=== PATIENT | male | born 1960 | race Caucasian/White ===

== ENCOUNTER 2020-05-10 07:42 | Outpatient (CLI) | payer OTHER, SELFPAY ==
--- NOTE | 2020-05-14 11:37 | WPDPFTINT ---
PFT Interpretation PFT Interpretation: This PFT met all criteria for ATS standards and reproducibility FEV/FVC pre bronchodilator 70% of predicted FEV1 71% or 2.47 liters FVC 66% or 3.28 liters TLC 65% or 4.67 liters RV 40% RV/TLC 21 % DLCO 59% when adjusted for alveolar volume but not adjusted for hemoglobin Flow volume loops showed some expiratory coving Impression: Combined obstructive and restrictive ventilatory defect. The restriction is likely due to obesity Clinical correlation is advised.
--- NOTE | 2020-05-14 11:41 | WPDSIXMINUTE ---
Six Minute Walk Six Minute Walk: The patients O2 sats started at 97% and dropped as low as 91% Total walk distance 500 ft Patient stopped test at 4 minutes due to knee pain and dyspnea conclusion: This patient does not qualify for home oxygen therapy
== END 2020-05-10 07:43 | disposition home or self-care (01) ==
PROVIDERS: PCP Physician Assistant; Visit Provider Internal Medicine Critical Care Medicine
DX: R06.02 Shortness of breath (principal); R94.2 Abnormal results of pulmonary function studies
CPT/HCPCS: 94060; 94618; 94726; 94729

== ENCOUNTER 2020-07-01 12:34 | Outpatient (CLI) | payer OTHER, SELFPAY ==
--- NOTE | ~2020-07-01 | XR_ITS ---
EXAMINATION: XR chest 2V 07/01/2020 12:52 INDICATION: Chest pain PROCEDURE: PA and lateral views of the chest COMPARISON: 03/09/2015 FINDINGS: The lungs are clear. The cardiomediastinal silhouette is within normal limits. There are no pleural effusions. There is no pneumothorax suspected. Elevated right diaphragm. IMPRESSION: 1: NO ACUTE CARDIOPULMONARY DISEASE. Reviewed, dictated and finalized at location A. ODICALS LIBRARY ASSISTANT
--- NOTE | ~2020-07-01 | NM_ITS ---
EXAMINATION: NM pulmonary perfusion DATE: 07/01/2020 13:25 INDICATION: Dyspnea. TECHNIQUE: 5.31 mCi Tc-99m MAA was administered intravenously for perfusion images. Scintigraphic im ages of the chest were obtained. COMPARISON: Chest 2 views 07/01/2020, chest CT 04/27/07 FINDINGS: Perfusion images show no defects. ] IMPRESSION: 1. Pulmonary embolism absent (normal). Reviewed, dictated and finalized at location A. CTOR OF IT OPERATIONS
== END 2020-07-01 12:35 | disposition home or self-care (01) ==
PROVIDERS: PCP Physician Assistant; Visit Provider Internal Medicine Critical Care Medicine
DX: R06.09 Other forms of dyspnea (principal); R06.02 Shortness of breath
CPT/HCPCS: 71046; 78580; A9540

== ENCOUNTER 2022-03-05 07:00 | Outpatient (CLI) | payer OTHER, SELFPAY ==
--- NOTE | ~2022-03-05 | NM_ITS ---
EXAMINATION: NM pamela stress w perfusion DATE: 03/05/2022 11:07 INDICATION: Dyspnea TECHNIQUE: Rest images were obtained following intravenous administration of 10.5 mCi Tc99m tetrofosm in (Myoview). The patient was infused intravenously with Lexiscan (Regadenoson). Then, 34.0 mCi Tc99m tetrofosmin (Myoview) was administered intravenously, and stress images were obtained. Data was jonna nstructed into short axis and horizontal and vertical long axis SPECT images. Gated SPECT images were also obtained. COMPARISON: 05/30/1990 FINDINGS: There is no definite reversible or fixed perfusion abnormality to suggest ischemia or infar ction. There is normal left ventricular chamber size, wall motion and ejection fraction. Left ventr icular ejection fraction measures 67%. IMPRESSION: 1. Normal myocardial perfusion at rest and during stress. 2. Left ventricular ejection fraction measuring 67%. Reviewed, dictated and finalized at location A.
--- NOTE | 2022-03-05 08:03 | ECHO_ITS ---
Patient Info Name: Candida Summers Age: 61 years : 1960 Gender: Male Ht: 72 in Wt: 330 lbs BSA: 2.83 m2 HR: 82 bpm BP: 133 / 78 mmHg Technical Quality: Fair Exam Date: 03/05/2022 8:33 AM Exam Location: [facility] Patient Status: Outpatient Admit Date: 03/05/2022 Staff Ordering Physician: Jey Gonzalez DO Direct Entry Midwife: Leatha Gay RDCS Attending Provider: Jey Gonzalez DO Referring Physician: Carlos NELSON; Exam Type: CA echo doppler color flow Study Info Indications R06.09 - Other forms of dyspnea Complete two-dimensional, color flow and Doppler transthoracic echocardiogram is performed. Summary 1. Complete two-dimensional, color flow and Doppler transthoracic echocardiogram is performed. 2. Left ventricular chamber dimension is normal. 3. Left ventricular systolic function is normal, estimated at 55-60%. 4. There is mildly increased left ventricular wall thickness. 5. The left ventricular diastolic function is abnormal. 6. E/e' 11 is mildly elevated. 7. Atrial fibrillation. 8. Left atrial chamber dimension is moderately enlarged. 9. There is mild aortic valve sclerosis. 10. The mitral valve has moderately calcified annulus. 11. There is mild mitral valve regurgitation. 12. There is mild tricuspid valve regurgitation. 13. Mild pulmonary hypertension, estimated pulmonary arterial systolic pressure is 41 mmHg. Left Ventricle E/e' 11 is mildly elevated. Atrial fibrillation. Left ventricular chamber dimension is normal. Left ventricular systolic function is normal, estimated at 55-60%. There is mildly increased left ventricular wall thickness. The left ventricular diastolic function is abnormal. Right Ventricle Right ventricular systolic function is normal and with normal TAPSE 2.0 cm. Right ventricular chamber dimension is normal. Left Atria Left atrial chamber dimension is moderately enlarged. Right Atria Right atrial chamber dimension is normal. Aortic Valve The aortic valve is trileaflet. There is mild aortic valve sclerosis. There is no aortic valve stenosis. There is no aortic valve regurgitation. Pulmonic Valve There is no pulmonic regurgitation. Mitral Valve The mitral valve has moderately calcified annulus. There is no mitral valve stenosis. There is mild mitral valve regurgitation. Tricuspid Valve There is mild tricuspid valve regurgitation. Mild pulmonary hypertension, estimated pulmonary arterial systolic pressure is 41 mmHg. Pericardium/Pleural There is no pericardial effusion. Inferior Vena Cava Normal inferior vena cava with >50% collapse upon inspiration consistent with normal right atrial pressure, 5 mmHg. Aorta The aortic root size at the sinus of Valsalva is normal. Left Ventricular Outflow Tract Name Value Normal LVOT 2D LVOT Diameter 2.4 cm LVOT Doppler LVOT Peak Gradient 3 mmHg LVOT Mean Gradient 2 mmHg LVOT VTI 21 cm LVOT VTI/AV VTI Ratio 1.1 LVOT Stroke Volume 94 ml
--- NOTE | 2022-03-05 08:04 | EST_ITS ---
Patient Info Name: Candida Summers Age: 61 years : 1960 Gender: Male Ht: 72 in Wt: 330 lbs BSA: 2.83 m2 HR: 74 bpm BP: 140 / 87 mmHg Heart Rhythm: Sinus Rhythm Exam Date: 03/05/2022 10:12 AM Exam Location: [facility] Stress Patient Status: Outpatient Admit Date: 03/05/2022 Staff Ordering Physician: Jey Gonzalez DO Attending Provider: Jey Gonzalez DO Exercise Technologist: Geri Loya CT Exercise Physician: Jey Gonzalez DO Exam Type: CA stress pamela w NM Study Info Indications R06.09 - Other forms of dyspnea A regadenoson stress test was performed. Summary 1. 1. Negative lexiscan stress test for ischemic ST changes by ECG criteria. 2. 2. Baseline hypertension. 3. 3. Nuclear scan to follow and will be reported separately. Please correlate with it. 4. 4. Patient informed of the above results. Protocol: Lexiscan Stress ECG Details Stage: REST Duration (min): 1 min : 25 sec HR (bpm): 68 SBP (mmHg): --- DBP (mmHg): --- Stage: REST Duration (min): 12 min : 21 sec HR (bpm): 74 SBP (mmHg): --- DBP (mmHg): --- Stage: STAGE 1 Duration (min): 1 min : 0 sec HR (bpm): 70 SBP (mmHg): --- DBP (mmHg): --- Stage: RECOVERY Duration (min): 1 min : 0 sec HR (bpm): 96 SBP (mmHg): --- DBP (mmHg): --- Stage: RECOVERY Duration (min): 2 min : 0 sec HR (bpm): 87 SBP (mmHg): 155 DBP (mmHg): 78 Stage: RECOVERY Duration (min): 3 min : 0 sec HR (bpm): 82 SBP (mmHg): 155 DBP (mmHg): 78 Stage: RECOVERY Duration (min): 3 min : 26 sec HR (bpm): 78 SBP (mmHg): 135 DBP (mmHg): 87 Rest HR: 74 bpm Peak HR: 100 bpm Rest Sys BP: 145 mmHg Peak Sys BP: 155 mmHg Max Pred HR: 160 bpm % Max Pred HR: 63 % Target HR: 136 bpm Max RPP: 15,500 bpm*mmHg Termination Reason: Completed protocol Cardiac Symptoms: Shortness of breath Total Time: 1 min : 0 sec Rest Puente BP: 80 mmHg Peak [place]ente BP: 78 mmHg Total Dose: 0.4 mg Resting ECG Atrial fibrillation, IRBBB. Stress ECG No ST changes. Arrhythmias None. Report Signatures
== END 2022-03-05 07:01 | disposition home or self-care (01) ==
LOC: ANHCARD 07:03
PROVIDERS: PCP Physician Assistant; Visit Provider Internal Medicine Cardiovascular Disease
DX: R06.09 Other forms of dyspnea (principal); I08.3 Combined rheumatic disorders of mitral, aortic and tricuspid valves
CPT/HCPCS: 78452; 93017; 93306; A9502; J2785

== ENCOUNTER 2022-06-05 01:01 | Day surgery (SDC) | payer OTHER, SELFPAY ==
--- NOTE | 2022-06-02 12:45 | PC.NURSE ---
This RN called & spoke with Dr Gonzalez. No eliquis or anna marie started. Ok with Dr Gonzalez & no labs needed.
[2022-06-04 14:57] VITALS: BMI 47.2
--- NOTE | 2022-06-05 | ECHO_ITS ---
Patient Info Name: Candida Summers Age: 61 years : 1960 Gender: Male Ht: 72 in Wt: 348 lbs BSA: 2.91 m2 HR: 87 bpm Exam Date: 06/05/2022 11:52 AM Exam Location: [facility] Pulmonary Patient Status: Outpatient Admit Date: 06/05/2022 Staff Ordering Physician: Jey Gonzalez DO Executive Chef Assistant: Magdy Haro RDCS, RT Attending Provider: Jey Gonzalez DO Referring Physician: Carlos NELSON; Exam Type: CA echo transesophageal Study Info Indications I48.1 - Persistent atrial fibrillation Complete two-dimensional, color flow and Doppler transesophageal study is performed. Procedure Details Risks/benefits/alternative to HAZEL discuss with patient and he is agreeable for procedure. Patient given cetacaine spray x 1 to posterior oropharynx. Patient monitored throughout the procedure electrocardiographically showing atrial fibrillation at 80 bpm, BP 120/70 mmHg, pulse ox >95%. Patient was given sedation as per anesthesiology. HAZEL probe advanced into esophagus without incident. Multiple images obtained at various levels of esophagus. Agitated saline injection x1. HAZEL probe withdrawn and no blood noted on HAZEL probe tip. Patient tolerated procedure well with no complications. Summary 1. Transesophageal echocardiogram. 2. Left ventricular chamber dimension is normal. 3. Left ventricular systolic function is normal with an ejection fraction of 60-65%. 4. There is mildly increased left ventricular wall thickness. 5. Left atrial chamber dimension is moderately enlarged. 6. Spontaneous echo contrast noted. 7. There is mobile echogenic rounded thrombus measuring 0.5 cm x 0.5 cm visualized in the left atrial appendage. 8. There is mild aortic valve sclerosis. 9. There is mild mitral valve regurgitation. 10. There is mild tricuspid valve regurgitation. Left Ventricle Left ventricular systolic function is normal with an ejection fraction of 60-65%. The left ventricular diastolic function is indeterminate as this was not assessed. Left ventricular chamber dimension is normal. There is mildly increased left ventricular wall thickness. Transesophageal echocardiogram. Right Ventricle Right ventricular chamber dimension is normal. Right ventricular systolic function is normal. Left Atria Spontaneous echo contrast noted. Left atrial chamber dimension is moderately enlarged. Right Atria Right atrial chamber dimension is normal. Atrial Septum Agitated saline injection opacified right side cardiac chambers without shunt to left side cardiac chambers. Intact interatrial septum visualized by 2D, color flow and agitated saline imaging. Atrial Appendage There is mobile echogenic rounded thrombus measuring 0.5 cm x 0.5 cm visualized in the left atrial appendage. Aortic Valve The aortic valve is trileaflet. There is mild aortic valve sclerosis. There is no aortic valve stenosis. There is no aortic valve regurgitation. Pulmonic Valve There is no pulmonic regurgitation. Mitral Valve There is no mitral valve stenosis. There is mild mitral valve regurgitation. Tricuspid Valve RVSP was not measured. There is mild tricuspid valve regurgitation. Pericardium/Pleural There is no pericardial effusion. Inferior Vena Cava Inferior vena cava is not well visualized. Aorta The aortic root size at the sinus of Valsalva is normal. Report Signatures
[2022-06-05 10:12] VITALS: BP 118/64; PULSE 84; RESP 26; TEMP 36; O2SAT 100; BMI 46.5
--- NOTE | 2022-06-05 10:45 | WPDANESEPPF ---
Anes - Initial Pre Proc Eval Procedure: Operation Date: 06/05/22 12:30 Proposed Procedures p Trans Esophageal Echo HAZEL - Jey Gonzalez DO s Electrical Cardioversion - Jey Gonzalez DO Date/Time: 06/05/22 10:45 Surgeon: Jey Gonzalez DO Pre Op Diagnosis: Afib Patient Data Age: 61 Gender: M Height: 1.83 m Weight: 155.7 kg Last Vital Signs Temp 96.8 F L 06/05/22 10:12 Pulse 84 06/05/22 10:12 Resp 26 H 06/05/22 10:12 BP 118/64 06/05/22 10:12 Pulse Ox 100 06/05/22 10:12 O2 Del Method Room Air 06/05/22 10:12 Allergies Allergy/AdvReac Type Severity Reaction Status Date / Time No Known Allergies Allergy Mild Verified 06/01/22 09:22 Home Medications Medication Instructions Recorded Confirmed Type multivitamin 1 tablet PO DAILY 10/10/19 06/04/22 History aspirin 325 mg tablet,delayed 325 mg PO DAILY 04/09/20 06/04/22 History release inhalational spacing device #1 ea 06/26/20 06/04/22 Rx (Aerochamber MV spacer) montelukast 10 mg tablet 10 mg PO QHS 1 month #30 tabs 03/13/21 06/04/22 Rx (Singulair) fluticasone propionate 110 See Rx Instructions .Route 04/18/21 06/04/22 Rx mcg/actuation HFA aerosol inhaler .COMPLEX #12 grams (Flovent HFA) flecainide 100 mg tablet 100 mg PO BID #180 tabs 03/06/22 06/04/22 Rx metoprolol succinate 50 mg See Rx Instructions .Route 04/01/22 06/04/22 Rx tablet,extended release 24 hr .COMPLEX #30 tabs losartan 50 mg tablet See Rx Instructions .Route 04/08/22 06/04/22 Rx .COMPLEX #90 tabs albuterol sulfate 90 mcg/actuation 1 - 2 inh inhalation Q4-6H PRN 04/22/22 06/04/22 Rx aerosol inhaler shortness of breath or wheezing #8.5 grams Patient hx anesthesia problems: none Family hx anesthesia problems: none Results Review: All pre-operative results and documents have been reviewed as part of the pre-operative evaluation. [facility] Past Medical History Medical History Asthma Atrial fibrillation with normal ventricular rate Bilateral chronic knee pain ENGEL (dyspnea on exertion) Essential hypertension Insomnia, unspecified Obesity SOB (shortness of breath) on exertion Surgical History Surgical History History of knee surgery History of nasal surgery Family History Family History Other Diabetes mellitus Social History Social History Smoking status: Never smoker Second hand tobacco smoke exposure: No Alcohol intake: current Alcohol use details: occasional Substance use: never Spiritual care concerns: No Anes - Eval Final PreProcedure Day of Procedure 06/05/22 10:45 Patient weight: morbidly obese Heart: irregular rhythm Lungs: clear to auscultation Airway: Mallampati scale class III Neurological: alert and oriented ASA classification: IV Emergent: no Anesthetic plan: proceed Anesthesia type and monitoring: general GIVS and standard monitoring Results Review: All pre-operative results and documents have been reviewed as part of the pre-operative evaluation. Informed Consent: The patient's anesthetic plan and its attendant risks and benefits were discussed with the patient/family/POA. Questions were solicited and answers provided to the satisfaction of the patient/family/POA.
--- NOTE | 2022-06-05 11:45 | ECG_ITS ---
Measurements Intervals [place] Rate: 76 P: [place]: 0 QRS: 73 QRSD: 98 T: 13 QT: 372 QTc: 420 Interpretive Statements ATRIAL FIBRILLATION BORDERLINE LEFTWARD AXIS ABNORMAL RHYTHM ECG NO PREVIOUS ECG AVAILABLE FOR COMPARISON Electronically Signed On 06-05-2022 13:46:42 CDT by Jignesh Aragon M.D.
[2022-06-05 12:05] VITALS: BP 104/70; PULSE 87; RESP 35; O2SAT 98
[2022-06-05 12:15] VITALS: BP 128/107; PULSE 85; RESP 32; O2SAT 98
[2022-06-05 12:30] VITALS: BP 110/71; PULSE 81; RESP 24; O2SAT 98
[2022-06-05 12:45] VITALS: BP 115/71; PULSE 74; RESP 27; O2SAT 99
[2022-06-05 13:00] VITALS: BP 121/77; PULSE 77; RESP 25; O2SAT 98
== END 2022-06-05 13:10 | disposition home or self-care (01) ==
PROVIDERS: PCP Physician Assistant; Visit Provider Internal Medicine Cardiovascular Disease
PROC: (CPT 93312; principal; 2022-06-05 12:30)
PROC: 5A2204Z Restoration of Cardiac Rhythm, Single (ICD-10-PCS; 2022-06-05 12:30)
DX: I48.19 Other persistent atrial fibrillation (principal); I34.0 Nonrheumatic mitral (valve) insufficiency; I36.1 Nonrheumatic tricuspid (valve) insufficiency; I10 Essential (primary) hypertension; G47.33 Obstructive sleep apnea (adult) (pediatric); R60.0 Localized edema; J45.909 Unspecified asthma, uncomplicated; R06.09 Other forms of dyspnea; Z79.82 Long term (current) use of aspirin; Z79.51 Long term (current) use of inhaled steroids
CPT/HCPCS: 92960; 93312; 93320; 93325; A9270; J2704

== ENCOUNTER 2022-08-17 02:05 | Day surgery (SDC) | payer OTHER, SELFPAY ==
[2022-08-14 09:08] VITALS: BMI 46.2
--- NOTE | 2022-08-16 09:35 | WPDANESEPPF ---
Anes - Initial Pre Proc Eval Procedure: Operation Date: 08/17/22 09:30 Proposed Procedures p Trans Esophageal Echo - Jey Gonzalez DO s Electrical Cardioversion - Jey Gonzalez DO Date/Time: 08/16/22 09:35 Surgeon: Jey Gonzalez DO Pre Op Diagnosis: Afib I48.91 Patient Data Age: 61 Gender: M Height: 1.83 m Weight: 154.5 kg Allergies Allergy/AdvReac Type Severity Reaction Status Date / Time No Known Allergies Allergy Mild Verified 08/17/22 08:39 Home Medications Medication Instructions Recorded Confirmed Type multivitamin 1 tablet PO DAILY 10/10/19 08/17/22 History inhalational spacing device #1 ea 06/26/20 08/03/22 Rx (Aerochamber MV spacer) flecainide 100 mg tablet 100 mg PO BID #180 tabs 03/06/22 08/17/22 Rx albuterol sulfate 90 mcg/actuation 1 - 2 inh inhalation Q4-6H PRN 04/22/22 08/17/22 Rx aerosol inhaler shortness of breath or wheezing #8.5 grams apixaban 5 mg tablet (Eliquis) 5 mg PO BID #60 tabs 06/05/22 08/17/22 Rx montelukast 10 mg tablet 10 mg PO QHS 1 month #30 tabs 06/15/22 08/17/22 Rx (Singulair) losartan 50 mg tablet 50 mg PO DAILY 08/17/22 08/17/22 History meloxicam 15 mg tablet 15 mg PO HS 08/17/22 08/17/22 History metoprolol succinate 50 mg 50 mg PO DAILY 08/17/22 08/17/22 History tablet,extended release 24 hr Other studies: Admit Date: ? ? 03/05/2022 Staff Ordering Physician: ? ? Jey Gonzalez DO External Relations Director: ? ? Leatha Gay RDCS Attending Provider: ? ? Jey Gonzalez DO Referring Physician: ? ? Carlos NELSON; Exam Type: ? ? CA echo doppler color flow Study Info Indications ? ? R06.09 - Other forms of dyspnea Complete two-dimensional, color flow and Doppler transthoracic echocardiogram is performed. Account #: ? ? [id number] Summary ? 1. Complete two-dimensional, color flow and Doppler transthoracic echocardiogram is performed. ? 2. Left ventricular chamber dimension is normal. ? 3. Left ventricular systolic function is normal, estimated at 55-60%. ? 4. There is mildly increased left ventricular wall thickness. ? 5. The left ventricular diastolic function is abnormal. ? 6. E/e' 11 is mildly elevated. ? 7. Atrial fibrillation. ? 8. Left atrial chamber dimension is moderately enlarged. ? 9. There is mild aortic valve sclerosis. ? 10. The mitral valve has moderately calcified annulus. ? 11. There is mild mitral valve regurgitation. ? 12. There is mild tricuspid valve regurgitation. ? 13. Mild pulmonary hypertension, estimated pulmonary arterial systolic pressure is 41 mmHg. Patient hx anesthesia problems: none Family hx anesthesia problems: none Results Review: All pre-operative results and documents have been reviewed as part of the pre-operative evaluation. [facility] Past Medical History Medical History (Updated 08/16/22 @ 09:38 by Dom Trinh MD) Asthma Atrial fibrillation with normal ventricular rate Bilateral chronic knee pain ENGEL (dyspnea on exertion) Essential hypertension Insomnia, unspecified Morbid obesity with BMI of 45.0-49.9, adult Obesity Obstructive sleep apnea syndrome Pulmonary HTN SOB (shortness of breath) on exertion Surgical History Surgical History History of knee surgery History of nasal surgery Family History Family History Other Diabetes mellitus Social History Social History Smoking status: Never smoker Second hand tobacco smoke exposure: No Alcohol intake: current Alcohol use details: occasional Substance use: never Substance use type: does not use Living arrangements: with family Spiritual care concerns: No Anes - Eval Final PreProcedure Day of Procedure 08/16/22 09:35 Patient weight: morbidly obese Heart: irregular rhythm Lungs: clear to auscultation Airway: Mallampati scale class III Neurological: a
[2022-08-17] VITALS (11 sets, daily range): BP systolic 103–131; BP diastolic 63–93; PULSE 69–87; RESP 18–29; TEMP 36.6; O2SAT 95–98; BMI 48.6
--- NOTE | 2022-08-17 | ECHO_ITS ---
Patient Info Name: Candida Summers Age: 61 years : 1960 Gender: Male Ht: 72 in Wt: 340 lbs BSA: 2.87 m2 HR: 88 bpm Technical Quality: Good Exam Date: 08/17/2022 9:43 AM Exam Location: [facility] Pulmonary Patient Status: Outpatient Admit Date: 08/17/2022 Staff Ordering Physician: Jey Gonzalez DO Net Programmer Analyst: Magdy Haro RDCS, RT Attending Provider: Jey Gonzalez DO Referring Physician: Carlos NELSON; Exam Type: CA echo transesophageal Study Info Indications I48.1 - Persistent atrial fibrillation Complete two-dimensional, color flow and Doppler transesophageal study is performed. Procedure Details Risks/benefits/alternative treatment to HAZEL/cardioversion discuss with patient and he is agreeable for it. He was monitored electrocardiographically, pulse ox and vitals. HR was at 85 bpm, BP 130/80 mmHg, pulse ox >90%. Given cetacaine spray x 1 to posterior oropharynx. HAZEL probe advanced without incident into esophagus. Multiple images obtained at various levels in esophagus. HAZEL probe withdrawn and no blood noted on HAZEL probe tip. He tolerated procedure well with no complications. Summary 1. Transesophageal echocardiogram. 2. Left ventricular chamber dimension is normal. 3. There is mildly increased left ventricular wall thickness. 4. The left ventricular diastolic function is indeterminate. 5. Left ventricular systolic function is normal with an ejection fraction of 60-65%. 6. Left atrial chamber dimension is moderately enlarged. 7. Spontaneous echo contrast noted in left atrium. 8. Reverberation artifact noted from coumadin ridge to opening of left atrial appendage. 9. There is mild mitral valve regurgitation. 10. There is mild tricuspid valve regurgitation. Left Ventricle Left ventricular systolic function is normal with an ejection fraction of 60-65%. Transesophageal echocardiogram. Left ventricular chamber dimension is normal. There is mildly increased left ventricular wall thickness. The left ventricular diastolic function is indeterminate. Right Ventricle Right ventricular chamber dimension is normal. Right ventricular systolic function is normal. Left Atria Spontaneous echo contrast noted in left atrium. Left atrial chamber dimension is moderately enlarged. Right Atria Right atrial chamber dimension is normal. Atrial Septum Reverberation artifact noted from coumadin ridge to opening of left atrial appendage. Atrial Appendage There is no thrombus visualized in the left atrial appendage. Aortic Valve The aortic valve is trileaflet. There is no aortic valve stenosis. There is no aortic valve regurgitation. Pulmonic Valve There is no pulmonic regurgitation. Mitral Valve There is no mitral valve stenosis. There is mild mitral valve regurgitation. Tricuspid Valve There is mild tricuspid valve regurgitation. RVSP is not measured. Pericardium/Pleural There is no pericardial effusion. Inferior Vena Cava Inferior vena cava is not well visualized. Aorta The aortic root size at the sinus of Valsalva is normal. Report Signatures
--- NOTE | 2022-08-17 08:00 | ECG_ITS ---
Measurements Intervals [place] Rate: 81 P: [place]: 0 QRS: 80 QRSD: 102 T: 13 QT: 394 QTc: 460 Interpretive Statements ATRIAL FIBRILLATION ABNORMAL RHYTHM ECG COMPARED TO ECG 08/17/2022 08:31:14 NO SIGNIFICANT CHANGES Electronically Signed On 08-17-2022 10:31:38 SHOE WORKER by Thomas Jones M.D.
[2022-08-17 09:22] LABS: Anion Gap 5 mmol/L (8-16); Blood Urea Nitrogen 27 mg/dL (9-20); Carbon Dioxide 28 mmol/L (22-30); Chloride 103 mmol/L (98-107); Estimated CRCL calculation 121 ml/min; Estimated Glomerular Filt Rate > 60; Glucose 98 mg/dL (65-110); Magnesium 2.1 mg/dL (1.6-2.3); Potassium 4.1 mmol/L (3.4-5.0); Sodium 136 mmol/L (137-145)
--- NOTE | 2022-08-17 09:30 | ECG_ITS ---
Measurements Intervals [place] Rate: 80 P: [place]: 0 QRS: 82 QRSD: 95 T: 32 QT: 394 QTc: 455 Interpretive Statements ATRIAL FIBRILLATION ABNORMAL ECG Electronically Signed On 08-17-2022 10:30:17 FURNITURE ASSEMBLY SUPERVISOR by Thomas Jones M.D.
--- NOTE | 2022-08-17 10:47 | WPDCARDVER ---
Cardioversion Cardioversion Date of procedure: 08/17/22 Procedure: Direct current Cardioversion Pre-op diagnosis: Atrial fibrillation Indications: Symptomatic atrial fibrillation Description of procedure: DC cardioversion Sedation: As per anesthesiology service Findings: DC defibrillation pads placed in anterior and posterior chest wall. 200 J biphasic synchronized energy x3 but remained in atrial fib/flutter. No complications. Conclusion: 1. Unsuccessful DC cardioversion with 3 direct current attempts remaining in atrial fib/flutter. [facility] Billing for Cardioversion: Cardioversion
== END 2022-08-17 12:00 | disposition home or self-care (01) ==
PROVIDERS: PCP Physician Assistant; Visit Provider Internal Medicine Cardiovascular Disease
PROC: (CPT 93312; principal; 2022-08-17 09:30)
PROC: 5A2204Z Restoration of Cardiac Rhythm, Single (ICD-10-PCS; 2022-08-17 09:30)
DX: I48.19 Other persistent atrial fibrillation (principal); I34.0 Nonrheumatic mitral (valve) insufficiency; I36.1 Nonrheumatic tricuspid (valve) insufficiency; I27.20 Pulmonary hypertension, unspecified; R06.09 Other forms of dyspnea; I10 Essential (primary) hypertension; G47.33 Obstructive sleep apnea (adult) (pediatric); Z79.51 Long term (current) use of inhaled steroids; Z79.01 Long term (current) use of anticoagulants; E66.01 Morbid (severe) obesity due to excess calories; Z68.42 Body mass index [BMI] 45.0-49.9, adult
CPT/HCPCS: 36415; 80048; 83735; 92960; 93312; 93320; 93325; J2704

== ENCOUNTER 2023-10-17 10:01 | Emergency (ER) | payer BC, MEDICAID, SELFPAY ==
[2023-10-17] VITALS (11 sets, daily range): BP systolic 97–130; BP diastolic 40–84; PULSE 78–90; RESP 14–22; TEMP 36.4–36.7; O2SAT 92–100
--- NOTE | ~2023-10-17 | CT_ITS ---
EXAMINATION: CT abdomen pelvis w con DATE: 10/17/2023 12:57 INDICATION: Right upper quadrant and epigastric pain. Nausea, vomiting and diarrhea. TECHNIQUE: Computed tomography (CT) of the abdomen and pelvis was performed with 100 mL Omnipaque-350 intravenous contrast. Automated exposure control and iterative reconstruction technique were employe d. The dose-length product was 1756.92 mGy-cm. COMPARISON: 04/16/2012 FINDINGS: Elevation the right hemidiaphragm with partial collapse of the adjacent inferior right middle lobe. U nchanged minimal lingular atelectasis/scarring. Heart size is normal. Atherosclerotic coronary artery calcific location. Aortic valve calcific lesion. No pericardial or pleural effusion. Liver, gallblad roxana, spleen, pancreas, bilateral adrenal glands and right kidney are normal. 3.9 cm left renal cyst. Bladder is normal. There is mild colonic diverticulosis with a sigmoid predominance. There is no adj acent inflammatory change to suggest diverticulitis. Thin curvilinear soft tissue density rim surroun ding a small heterotopic fat attenuation epiploic appendage along the distal descending colon without significant inflammatory stranding consistent with epiploic appendicitis more likely chronic than ac [place] but new since the prior study. Fluid in the proximal colon consistent with nonspecific diarrhea. No bowel obstruction. No obstruction. Normal appendix. Bladder is normal. No free intraperitoneal gas or fluid. Fat-containing left inguinal hernia. IMPRESSION: 1. Colonic fluid consistent with nonspecific diarrhea. Correlate clinically for gastroenteritis. 2. Age-indeterminate but more likely chronic epiploic appendage ice at the distal descending colon. Reviewed, dictated and finalized at location A. ARCHITECT IMPRESSION: 1. Colonic fluid consistent with nonspecific diarrhea. Correlate clinically for gastroenteritis. 2. Age-indeterminate but more likely chronic epiploic appendage ice at the dist al descending colon.
--- NOTE | 2023-10-17 10:24 | ECG_ITS ---
Measurements Intervals [place] Rate: 83 P: [place]: 0 QRS: 83 QRSD: 89 T: 7 QT: 380 QTc: 449 Interpretive Statements ATRIAL FIBRILLATION RIGHTWARD AXIS ABNORMAL RHYTHM ECG COMPARED TO ECG 08/17/2022 10:24:06 NO SIGNIFICANT CHANGES Electronically Signed On 10-17-2023 14:13:00 ARMHOLE PRESSER by Jignesh Aragon M.D.
[2023-10-17 11:24] LABS: Basophils Percent Auto 0.4 % (0.2-1.2); Eosinophils Absolute Auto 0.1 K/mm3 (0-0.3); Eosinophils Percent Auto 0.8 % (0-4.4); Hematocrit 47.4 % (42.0-52.0); Hemoglobin 16.2 g/dL (14.0-18.0); Immature Granulocyte Absolute 0.03 K/mm3 (0.00-0.031); Immature Granulocyte Percent A 0.3 % (0-0.5); Lymphocytes Absolute Auto 1.49 K/mm3 (0.9-3.2); Lymphocytes Percent Auto 15.3 % (18.3-44.2); Mean Corpuscular HGB Conc 34.2 g/dl (32-36); Mean Corpuscular Hemoglobin 31.2 pg (26-34); Mean Corpuscular Volume 91.3 fl (80-100); Mean Platelet Volume 10.8 fl (7.4-10.4); Monocytes Absolute Auto 0.4 K/mm3 (0.1-0.6); Neutrophils Absolute Auto 7.7 K/mm3 (1.3-6.7); Neutrophils Percent Auto 79.2 % (45.5-73.1); Platelet Count Result 212 k/mm3 (150-375); Red Blood Count 5.19 M/mm3 (4.6-6.20); Red Cell Distribution Width 12.2 % (11.5-14.5); White Blood Count 9.7 K/mm3 (4.5-10.0)
[2023-10-17 11:33] LABS: Alanine Aminotransferase 146 U/L (6-50); Albumin Level 4.7 g/dL (3.5-5.1); Alkaline Phosphatase 134 U/L (38-126); Anion Gap 14 mmol/L (8-16); Aspartate Amino Transferase 57 U/L (17-59); Bilirubin,Total 1.4 mg/dL (0.2-1.3); Blood Urea Nitrogen 25 mg/dL (9-20); Carbon Dioxide 17 mmol/L (22-30); Chloride 106 mmol/L (98-107); Estimated CRCL calculation 89 ml/min; Estimated Glomerular Filt Rate > 60; Glucose 134 mg/dL (65-110); Lipase 169 U/L (23-300); Potassium 3.6 mmol/L (3.4-5.0); Sodium 137 mmol/L (137-145)
--- NOTE | 2023-10-17 11:52 | ED.ABDPAIN ---
HPI - Abdominal Pain General Chief Complaint: Abdominal Pain Stated Complaint: vomiting Time Seen by Provider: 10/17/23 10:51 Source: patient Mode of arrival: ambulatory Limitations: no limitations History of Present Illness HPI narrative: Patient is a 62-year-old male who presents ED with report of upper abdominal pain. Patient reports the pain has been ongoing for the last 1 week, but became worse today. He has not taken anything for the pain. Pain present throughout his upper abdomen. He notes he is currently on semaglutide for weight loss and had his dose increased last week. He complains of nausea, vomiting, diarrhea. Reporting several episodes of each. Denies rectal bleeding, melena, fevers. Has never had pain like this before. No previous history of pancreatitis. No alcohol use. Patient has hx of afib, on eliquis. Related Data Home Medications Medication Instructions Recorded Confirmed multivitamin 1 tablet PO DAILY 10/10/19 08/25/23 amiodarone 200 mg tablet 200 mg PO DAILY 04/21/23 08/25/23 diclofenac sodium 75 mg 75 mg PO BID 04/21/23 08/25/23 tablet,delayed release nortriptyline 25 mg capsule 25 mg PO QHS 04/21/23 08/25/23 Allergies Allergy/AdvReac Type Severity Reaction Status Date / Time No Known Allergies Allergy Mild Verified 08/25/23 09:05 Review of Systems Review of Systems: CONSTITUTIONAL: Denies fever, chills, or sweats. CARDIOVASCULAR: Denies chest pain. RESPIRATORY: Denies dyspnea. GASTROINTESTINAL: See HPI GENITOURINARY: Denies dysuria or hematuria. All systems reviewed & are unremarkable except as noted in HPI and below [facility] Past Medical History Medical History Asthma Atrial fibrillation with normal ventricular rate Bilateral chronic knee pain ENGEL (dyspnea on exertion) Essential hypertension Insomnia, unspecified Morbid obesity with BMI of 45.0-49.9, adult Obesity Obstructive sleep apnea syndrome Pulmonary HTN SOB (shortness of breath) on exertion Surgical History Surgical History History of knee surgery History of nasal surgery Family History Family History Other Diabetes mellitus Social History Social History Smoking status: Never smoker Second hand tobacco smoke exposure: No Alcohol intake: current Alcohol use details: occasional Substance use: never Substance use type: does not use Lack of Transportation: No Lack of Food: Never True Current Housing: I Have Housing Concerned About Future Housing: No Difficulty Paying Gas/Electric Bills: No Difficulty Paying for Meds: No Currently Unemployed: No Education: High School Diploma/GED Difficulty w/ Childcare or Family Care: No Living arrangements: with family Gender identity (if verbalized by the patient): Male Sexual Orientation (if Verbalized by the Patient): Straight or Heterosexual Spiritual care concerns: No Exam Narrative: GENERAL: Uncomfortable appearing, moaning out in pain, difficulty sitting still on ED stretcher. Patient morbidly obese with BMI of 39.9. HEAD: Normocephalic, atraumatic. RESPIRATORY: Airway patent, respirations nonlabored. Clear to auscultation bilaterally, no rales, rhonchi, wheezing. CARDIOVASCULAR: Regular rate and rhythm without murmurs, rubs, or gallops. ABDOMINAL: Soft, diffuse upper abdominal tenderness, difficult to examine - patient somewhat uncooperative, nondistended. Normoactive BS. MUSCULOSKELETAL: Moves all extremities. No gross deformities. SKIN: Warm, dry, normal color. NEURO: A&O X3. Speech clear. Cranial nerves II-XII grossly intact. No ataxic movements. PSYCHIATRIC: Anxious, tearful. Normal interaction. Course Vital Signs Vital signs: Vital Signs Temperature 97.7 F 0
[2023-10-17] MEDS: SODIUM CHLORIDE 0.9% IV 1,000 ML 999 ML IV CONT ×2 (12:02→13:24)
[2023-10-17] MEDS: ONDANSETRON INJ 4 MG/2 ML VIAL IV PUSH (12:03)
[2023-10-17] MEDS: HYDROmorphone HCL INJ (*CRX) 1 MG/ML SYR IV PUSH (12:03)
[2023-10-17 14:24] LABS: Influenza A QL RT-PCR Negative (Negative); Influenza B QL RT-PCR Negative (Negative); RSV RNA, RT-PCR Negative (Negative); SARS-CoV-2 RNA PCR Negative (Negative)
[2023-10-17] MEDS: DICYCLOMINE HCL 10 MG CAPSULE 20 MG PO (14:48)
[2023-10-17] MEDS: ACETAMINOPHEN 500 MG TABLET 1000 MG PO (14:48)
[2023-10-17 15:20] LABS: Appearance Urine Cloudy (Clear); Bacteria Urine None Seen /hpf; Bilirubin Urine Negative (Negative); Blood Urine Negative (Negative); Color Urine Dark Yellow (Yellow); Glucose Urine UA Negative (Negative); Ketones Urine 2+ mg/dL (Negative); Leukocyte Esterase Ur Negative LEU/UL (Negative); Need Manual Microscopic Reviewed; Nitrate Urine Negative (Negative); Protein Urine 1+ mg/dL (Negative); RBC Urine 0-2 /hpf (0-2); Squamous Epithelial Cell Urine None seen /hpf (Few); Urobilinogen Urine 0.2 mg/dL (<2.0); WBC Urine 0-5 /hpf; pH Urine 5.5 (5.0-9.0)
[2023-10-17] MEDS: BELLADONNA ALK/PHENOB ELIX 10 ML, MAG HYDROX/ALUMINUM HYD/SIMETH 30 ML, LIDOCAINE HCL 2... PO (15:24)
[2023-10-17 15:47] LABS: Specific Grav Ur 1.065 (1.001-1.035)
[2023-10-17 15:48] LABS: Add Urine Microscopic? YES
[2023-10-17] MEDS: MORPHINE SULFATE (*CRX) 4 MG/ML INJ IV PUSH (16:25)
== END 2023-10-17 17:05 | disposition home or self-care (01) ==
PROVIDERS: Emergency Provider Physician Assistant; PCP Physician Assistant
DX: K52.9 Noninfective gastroenteritis and colitis, unspecified (principal); E86.0 Dehydration; R10.10 Upper abdominal pain, unspecified; Z20.822 Contact with and (suspected) exposure to COVID-19; I48.91 Unspecified atrial fibrillation; I10 Essential (primary) hypertension; I27.20 Pulmonary hypertension, unspecified; E66.01 Morbid (severe) obesity due to excess calories; Z68.39 Body mass index [BMI] 39.0-39.9, adult; G47.33 Obstructive sleep apnea (adult) (pediatric); R93.3 Abnormal findings on diagnostic imaging of other parts of digestive tract; Z79.01 Long term (current) use of anticoagulants
CPT/HCPCS: 36415; 74177; 80053; 81001; 83690; 85025; 87637; 93005; 96361; 96374; 96375; 99284; A9270; J1170; J2270; J2405; J7030; Q9967

== ENCOUNTER 2023-10-19 06:51 | Emergency (ER) | payer BC, MEDICAID, SELFPAY ==
[2023-10-19] VITALS (34 sets, daily range): BP systolic 107–171; BP diastolic 64–141; PULSE 74–98; RESP 9–34; TEMP 36.4; O2SAT 90–100
--- NOTE | ~2023-10-19 | CT_ITS ---
EXAMINATION: CTA chest PE abdomen pel DATE: 10/19/2023 10:59 INDICATION: Chest pain. Abdominal pain. Elevated d-dimer. TECHNIQUE: Computed tomography (CT) pulmonary angiogram of the chest was performed with 100 mL Omnipa que-350 intravenous contrast. Additional 3D reconstructions utilizing coronal maximum intensity proje ction (MIP) were performed. CT of the abdomen and pelvis was performed with intravenous contrast util izing the same contrast bolus following a short delay. Automated exposure control and iterative recon struction technique were employed. The dose-length product was 2604.85 mGy-cm. COMPARISON: CT abdomen pelvis dated 10/17/2023 FINDINGS: Chest: No pulmonary embolism. Unchanged elevation right hemidiaphragm with partial collapse of the right mid dle lobe with thick linear band of discoid atelectasis. Mild volume loss and dependent atelectasis in the bilateral lower lobes and unchanged small linear bands of discoid atelectasis in the lingula and right lower lobe. Calcified left lower lobe nodule consistent with old granulomatous disease. No pne umonia, pulmonary edema, pleural effusion or pneumothorax. Cardiomegaly with atherosclerotic coronary artery calcifications. No pericardial effusion. Mild increased prominence of the central pulmonary a rteries which could be seen with pulmonary arterial hypertension. Thoracic aorta is normal in caliber with no dissection. No pathologically enlarged thoracic lymphadenopathy. Mild thoracic spondylosis w ith chronic minimal to mild anterior wedging of a few mid to lower thoracic vertebral bodies. Additional/pelvis: There are some vicariously excreted contrast layering in the dependent aspect of the normal gallbladd er. Liver, spleen, pancreas, bilateral adrenal glands and right kidney are normal. 4.0 cm left renal cyst. There is moderate colonic diverticulosis with a sigmoid predominance. There is no adjacent infl ammatory change to suggest diverticulitis. Again seen is age-indeterminate epiploic appendagitis julio g the distal descending colon. . Small bowel and appendix are normal Tiny fat-containing umbilical he rnia. Bladder is normal. Small fat-containing left inguinal hernia. Mild lumbar dextroscoliosis with severe spondylosis. IMPRESSION: 1. No pulmonary embolism or other acute cardiopulmonary disease. 2. Mild enlargement of the central pulmonary arteries which can be seen with pulmonary arterial hyper tension. 3. Age-indeterminate epiploic appendagitis along the distal descending colon. 4. Fat-containing left inguinal hernia. Reviewed, dictated and finalized at location A. TH PHYSICIST IMPRESSION: 1. No pulmonary embolism or other acute cardiopulmonary disease. 2. Mild enlargement of the central pulmonary arteries which can be seen with pu lmonary arterial hypertension. 3. Age-indeterminate epiploic appendagitis along the distal descending colon. 4. Fat-containing left inguinal hernia.
--- NOTE | ~2023-10-19 | XR_ITS ---
Clinical Indication: Chest pain AP and lateral views of the chest: Comparison: 07/01/2020 Findings: The lungs are clear, without evidence of focal consolidation or pleural effusion. Cardiome diastinal silhouette is within normal limits. Bones and soft tissues are unremarkable. Impression: Normal chest. Reviewed, dictated and finalized at [facility]. R GANG SUPERVISOR Impression: Normal chest.
--- NOTE | 2023-10-19 06:52 | ECG_ITS ---
Measurements Intervals [place] Rate: 84 P: [place]: 0 QRS: -28 QRSD: 85 T: 8 QT: 366 QTc: 435 Interpretive Statements ATRIAL FIBRILLATION BORDERLINE LEFT AXIS DEVIATION [QRS AXIS < -20] LOW QRS VOLTAGE IN PRECORDIAL LEADS [QRS DEFLECTION < 1.0 mV IN CHEST LEADS] ABNORMAL RHYTHM ECG COMPARED TO ECG 10/17/2023 10:27:54 NO SIGNIFICANT CHANGES Electronically Signed On 10-19-2023 15:31:15 LINE UP EXAMINER by Marley Barnett M.D.
[2023-10-19 07:19] LABS: Basophils Percent Auto 0.5 % (0.2-1.2); Eosinophils Percent Auto 0.5 % (0-4.4); Hematocrit 45.9 % (42.0-52.0); Hemoglobin 15.6 g/dL (14.0-18.0); Immature Granulocyte Absolute 0.04 K/mm3 (0.00-0.031); Immature Granulocyte Percent A 0.5 % (0-0.5); Lymphocytes Absolute Auto 1.13 K/mm3 (0.9-3.2); Lymphocytes Percent Auto 12.9 % (18.3-44.2); Mean Corpuscular Hemoglobin 31.9 pg (26-34); Mean Corpuscular Volume 93.9 fl (80-100); Mean Platelet Volume 10.4 fl (7.4-10.4); Monocytes Absolute Auto 0.2 K/mm3 (0.1-0.6); Monocytes Percent Auto 2.7 % (2.6-8.5); Neutrophils Absolute Auto 7.3 K/mm3 (1.3-6.7); Neutrophils Percent Auto 82.9 % (45.5-73.1); Platelet Count Result 191 k/mm3 (150-375); Red Blood Count 4.89 M/mm3 (4.6-6.20); Red Cell Distribution Width 12.2 % (11.5-14.5); White Blood Count 8.8 K/mm3 (4.5-10.0)
[2023-10-19 07:27] LABS: INR 1.2; Prothrombin Time 15.7 Seconds (11.1-14.7)
[2023-10-19 07:28] LABS: Partial Thromboplastin Time 30.1 SECONDS (22.3-36.8)
[2023-10-19 07:30] LABS: Alanine Aminotransferase 125 U/L (6-50); Albumin Level 4.5 g/dL (3.5-5.1); Alkaline Phosphatase 112 U/L (38-126); Anion Gap 6 mmol/L (8-16); Aspartate Amino Transferase 53 U/L (17-59); Bilirubin,Total 0.9 mg/dL (0.2-1.3); Blood Urea Nitrogen 17 mg/dL (9-20); Calcium 9.6 mg/dL (8.4-10.2); Carbon Dioxide 29 mmol/L (22-30); Chloride 103 mmol/L (98-107); Estimated CRCL calculation 107 ml/min; Estimated Glomerular Filt Rate > 60; Glucose 132 mg/dL (65-110); Lipase 101 U/L (23-300); Potassium 4.1 mmol/L (3.4-5.0); Sodium 138 mmol/L (137-145)
[2023-10-19 07:40] LABS: Troponin I < 0.012 ng/mL (0.000-0.034)
--- NOTE | 2023-10-19 09:41 | ED.CHESTPAIN ---
HPI - Chest Pain General Chief Complaint: Chest Pain Stated Complaint: chest pain Time Seen by Provider: 10/19/23 09:40 Source: patient Mode of arrival: ambulatory Limitations: no limitations History of Present Illness HPI narrative: This is a 62-year-old male that presents to the emergency department for chest pain and abdominal pain. Ongoing since earlier this morning. Unable to give care cure pain, reports it is just there . He took his prescribed pain medication with little relief. Reports now he has had relief of his chest pain. He is continuing to endorse lower abdominal discomfort. He did have associated vomiting and diarrhea, which has now resolved. Denies fever, cough, or shortness of breath. Related Data Home Medications Medication Instructions Recorded Confirmed multivitamin 1 tablet PO DAILY 10/10/19 08/25/23 amiodarone 200 mg tablet 200 mg PO DAILY 04/21/23 08/25/23 diclofenac sodium 75 mg 75 mg PO BID 04/21/23 08/25/23 tablet,delayed release nortriptyline 25 mg capsule 25 mg PO QHS 04/21/23 08/25/23 Allergies Allergy/AdvReac Type Severity Reaction Status Date / Time aspirin AdvReac Other Verified 10/19/23 07:05 Review of Systems Review of Systems: CONSTITUTIONAL: Denies fever CARDIOVASCULAR: Reports chest pain. Denies palpitations, or edema. RESPIRATORY: Denies cough or dyspnea. GASTROINTESTINAL: Reports abdominal pain, nausea, vomiting, and diarrhea. All systems reviewed & are unremarkable except as noted in HPI and below PMFSH Past Medical History Medical History Asthma Atrial fibrillation with normal ventricular rate Bilateral chronic knee pain ENGEL (dyspnea on exertion) Essential hypertension Insomnia, unspecified Morbid obesity with BMI of 45.0-49.9, adult Obesity Obstructive sleep apnea syndrome Pulmonary HTN SOB (shortness of breath) on exertion Surgical History Surgical History History of knee surgery History of nasal surgery Family History Family History Other Diabetes mellitus Social History Social History Smoking status: Never smoker Second hand tobacco smoke exposure: No Alcohol intake: current Alcohol use details: occasional Substance use: never Substance use type: does not use Lack of Transportation: No Lack of Food: Never True Current Housing: I Have Housing Concerned About Future Housing: No Difficulty Paying Gas/Electric Bills: No Difficulty Paying for Meds: No Currently Unemployed: No Education: High School Diploma/GED Difficulty w/ Childcare or Family Care: No Living arrangements: with family Gender identity (if verbalized by the patient): Male Sexual Orientation (if Verbalized by the Patient): Straight or Heterosexual Spiritual care concerns: No Exam Narrative: GENERAL: Well-appearing, well-nourished, and in no acute distress. HEAD: Normocephalic, atraumatic. EYES: EOMI. CHEST: Clear to auscultation. No respiratory distress. No wheezes rales or rhonchi HEART: Regular rate and rhythm. No murmur heard. Normal peripheral pulses. ABDOMEN: Soft, nondistended, normal active bowel sounds. Tender to palpation in the lower abdomen, without guarding EXTREMITIES: Normal range of motion. No edema. SKIN: Warm, dry, no rash. NEURO: No focal deficits. Alert and oriented x3. PSYCH: Normal mood and affect Course Course Emergency Course: Patient was updated on workup and agrees with plan of care Vital Signs Vital signs: Vital Signs Temperature 97.5 F L 10/19/23 06:59 Pulse Rate 81 10/19/23 06:59 Respiratory Rate 22 H 10/19/23 06:59 Blood Pressure 133/97 H 10/19/23 06:59 Pulse Oximetry 98 10/19/23 06:59 Oxygen Delivery Room Air 10/19/23 06:59 Sandy
--- NOTE | 2023-10-19 09:59 | ECG_ITS ---
Measurements Intervals [place] Rate: 82 P: [place]: 0 QRS: 33 QRSD: 94 T: 48 QT: 392 QTc: 458 Interpretive Statements ATRIAL FIBRILLATION COMPARED TO ECG 10/19/2023 06:56:17 NO SIGNIFICANT CHANGES Electronically Signed On 10-19-2023 15:37:17 FRENCH CORD BINDER by Marley Barnett M.D.
[2023-10-19] MEDS: MORPHINE SULFATE (*CRX) 4 MG/ML INJ IV PUSH ×2 (10:05→13:30)
[2023-10-19] MEDS: ONDANSETRON INJ 4 MG/2 ML VIAL IV PUSH (10:05)
[2023-10-19] MEDS: KETOROLAC 15 MG/ML VIAL (*BKC) IV PUSH (10:07)
[2023-10-19 10:23] LABS: D Dimer 1.33 ug/mL (<0.48)
[2023-10-19 10:32] LABS: Troponin I < 0.012 ng/mL (0.000-0.034)
--- NOTE | 2023-10-19 11:27 | PC.NURSE ---
Agree with assessment of Mirian Pastor student nurse.
[2023-10-19] MEDS: DICYCLOMINE HCL INJ 20 MG/2 ML VIAL IM (12:34)
[2023-10-19] MEDS: ACETAMINOPHEN 500 MG TABLET 1000 MG PO (13:29)
== END 2023-10-19 14:11 | disposition home or self-care (01) ==
PROVIDERS: Emergency Medicine; Emergency Provider Physician Assistant; PCP Physician Assistant
DX: K63.89 Other specified diseases of intestine (principal); R07.9 Chest pain, unspecified; J45.909 Unspecified asthma, uncomplicated; I48.91 Unspecified atrial fibrillation; I10 Essential (primary) hypertension; I27.20 Pulmonary hypertension, unspecified; E66.01 Morbid (severe) obesity due to excess calories; Z68.41 Body mass index [BMI] 40.0-44.9, adult; G47.33 Obstructive sleep apnea (adult) (pediatric); G47.00 Insomnia, unspecified
CPT/HCPCS: 36415; 71046; 71275; 74177; 80053; 83690; 84484; 85025; 85380; 85610; 85730; 93005; 96372; 96374; 96375; 96376; 99284; A9270; J0500; J1885; J2270; J2405; Q9967

== ENCOUNTER 2024-10-24 09:25 | Outpatient (CLI) | payer BC, MEDICAID, SELFPAY ==
--- NOTE | ~2024-10-24 | XR_ITS ---
EXAMINATION: XR lumbar spine min 4V DATE: 10/24/2024 09:52 INDICATION: Acute bilateral low back pain with sciatica. TECHNIQUE: 5 views of lumbar spine were obtained. COMPARISON: CT abdomen and pelvis 10/19/2023 FINDINGS: There is 19 degrees dextroscoliosis of lumbar spine. There are chronic bilateral L5 pars de fects. There is 11 mm anterolisthesis of L5 on S1. There is mild chronic anterior wedging of T12 vert ebral body. There is severely decreased disc height from T12-L1 through L3-L4, mildly decreased disc height at L4-L5, and severely decreased disc height at L5-S1. IMPRESSION: 1. Chronic bilateral L5 pars defects with grade 2 anterolisthesis of L5 on S1. 2. Severe lumbar spondylosis. 3. Lumbar dextroscoliosis. Reviewed, dictated and finalized at location A. BAG ASSEMBLER
== END 2024-10-24 09:26 | disposition home or self-care (01) ==
DX: M54.40 Lumbago with sciatica, unspecified side (principal); M47.896 Other spondylosis, lumbar region
CPT/HCPCS: 72110